=== PATIENT | female | born 1965 | race Caucasian/White ===

== ENCOUNTER → 2017-04-16 | Outpatient (CLI) | payer MEDICAID ==
[2017-04-16 15:55] LABS: Estradiol 26.6 pg/mL
== END | disposition home or self-care (01) ==
LOC: RADXRMAIN 08:00
PROVIDERS: ATTEND Obstetrics & Gynecology
DX: N92.6 Irregular menstruation, unspecified (principal); R51 Headache
CPT/HCPCS: 82670; 83001; 84439; 84443

== ENCOUNTER → 2017-04-22 | Outpatient (CLI) | payer MEDICAID ==
--- NOTE | 2017-04-22 14:32 | BD ---
EXAMINATION TYPE: MG DEXA axial skeleton. DATE OF EXAM: 04/22/2017 COMPARISON: NONE CLINICAL HISTORY: post menopausal Height: 5'3 1/2 Weight: 130 FRAX RISK QUESTIONS: Alcohol (3 or more units per day): no Family History (Parent hip fracture): no Glucocorticoids (More than 3mos): no (Ex: prednisone, prednisolone, methylprednisolone, dexamethasone, and hydrocortisone). History of Fracture in Adulthood: yes Secondary Osteoporosis: 1. Type 1 Diabetes: no 2. Hyperthyroidism: no 3. Menopause before 45: no 4. Malnutrition: no 5. Chronic liver disease: no Rheumatoid Arthritis: no Current Tobacco Use: no RISK FACTORS HISTORY OF: Spine Fracture: t spine When: 2004 History of Wrist Fracture: When: child Family History of Osteoporosis: post menopausal MEDICATIONS: Additional Medications: Additional History: EXAM MEASUREMENTS: Bone mineral densitometry was performed using the [employer] System. Bone mineral density as measured about the Lumbar spine is: ----- L1-L4(G/cm2): 0.933 T Score Values are as follows: ----- L2: -2.5 ----- L3: -2.0 ----- L4: -1.6 ----- L1-L4: -2.1 Bone mineral density about the R hip (g/cm2): 0.897 Bone mineral density about the L hip (g/cm2): 0.906 T Score values are as follows: -----R Neck: -1.0 -----L Neck: -1.0 -----R Total: -0.3 -----L Total: -0.4 IMPRESSION: Osteopenia (T Score between -2.5 and -1) as noted by T score values:L1-L4 There is slightly increased risk of fracture and the patient may be considered for treatment. Re-Screen 2-5 years. NOTE: T-SCORE=SD OF THE YOUNG ADULT MEAN.
== END | disposition home or self-care (01) ==
LOC: RADBDWWP 07:25
PROVIDERS: ATTEND Obstetrics & Gynecology
DX: M85.80 Other specified disorders of bone density and structure, unspecified site (principal); Z78.0 Asymptomatic menopausal state
CPT/HCPCS: 77080

== ENCOUNTER → 2018-01-19 | Outpatient (CLI) | payer MEDICAID ==
--- NOTE | 2018-01-20 08:17 | MR ---
EXAMINATION TYPE: MR ankle RT wo con DATE OF EXAM: 01/20/2018 COMPARISON: None HISTORY: Stress fracture, pain right ankle x 1 week Standard multiplanar, multisequence MRI departmental protocol Multiplanar, multisequence images of the right ankle were acquired. FINDINGS: There is diffuse edema throughout the distal margin of the fibula. There is extensive abnormal signal in the surrounding soft tissues findings suggestive of a periosteal reaction. Questionable subtle li near area of signal involving the distal fibula just proximal to the ankle joint may represent a massimo ical hairline defect. Findings are compatible with a stress fracture. Follow to resolution to exclude other etiologies. Visualized tibia demonstrates a normal signal pattern. The Achilles tendon has a normal appearance. V isualized tendinous and muscular structures appear to be intact. No diagnostic evidence of ligamentou s injury. IMPRESSION: Stress fracture distal fibula
== END | disposition home or self-care (01) ==
LOC: RADMRIMAIN 15:01
PROVIDERS: ATTEND Radiology Diagnostic Radiology
DX: M84.371A Stress fracture, right ankle, initial encounter for fracture (principal)

== ENCOUNTER → 2018-01-29 | Outpatient (CLI) | payer MEDICAID ==
[2018-01-29 06:52] LABS: Basophils % (A) 1 %; Eosinophils # (A) 0.2 k/uL (0-0.7); Eosinophils % (A) 5 %; HCT 42.8 % (34.0-46.0); HGB 13.8 gm/dL (11.4-16.0); Lymphocytes # (A) 1.1 k/uL (1.0-4.8); Lymphocytes % (A) 25 %; MCH 32.1 pg (25.0-35.0); MCHC 32.2 g/dL (31.0-37.0); MCV 99.7 fL (80.0-100.0); Mean Platelet Volume 6.2; Monocytes # (A) 0.3 k/uL (0-1.0); Monocytes % (A) 7 %; Neutrophils # (A) 2.7 k/uL (1.3-7.7); Neutrophils % (A) 61 %; Platelet Count 263 k/uL (150-450); RBC 4.29 m/uL (3.80-5.40); RDW 12.4 % (11.5-15.5); WBC 4.4 k/uL (3.8-10.6)
[2018-01-29 07:01] LABS: Appearance,Urine Clear (Clear); Bilirubin,Urine Negative (Negative); Blood,Urine Negative (Negative); Color,Urine Yellow; Glucose,Urine (UA) Negative (Negative); Ketones,Urine Negative (Negative); Leukocyte Esterase,Urine Trace (Negative); Mucus,Urine Rare /hpf; Nitrite,Urine Negative (Negative); PH, Urine 5.5 (5.0-8.0); Protein,Urine Negative (Negative); RBC,Urine <1 /hpf (0-5); Specific Gravity,Urine 1.015 (1.001-1.035); Squamous Epithelial Cell,Urine 2 /hpf (0-4); Urobilinogen,Urine <2.0 mg/dL (<2.0); WBC,Urine <1 /hpf (0-5)
[2018-01-29 07:09] LABS: ALT 30 U/L (9-52); AST 26 U/L (14-36); Albumin 4.2 g/dL (3.5-5.0); Alkaline Phosphatase 71 U/L (38-126); Amylase 69 U/L (30-110); Anion Gap 5 mmol/L; Blood Urea Nitrogen 18 mg/dL (7-17); Calcium 9.4 mg/dL (8.4-10.2); Carbon Dioxide 27 mmol/L (22-30); Chloride 106 mmol/L (98-107); Cholesterol 187 mg/dL (<200); Creatine Kinase 39 U/L (30-135); Glucose 86 mg/dL (74-99); HDL Cholesterol 93 mg/dL (40-60); LDL Cholesterol,Calculated 70 mg/dL (0-99); Lipase 95 U/L (23-300); Potassium 4.4 mmol/L (3.5-5.1); Sodium 138 mmol/L (137-145); Total Bilirubin 0.7 mg/dL (0.2-1.3); Total Protein 7.2 g/dL (6.3-8.2); Triglycerides 118 mg/dL (<150)
[2018-01-29 09:56] LABS: Erythrocyte Sedimentation Rate 8 mm/hr (0-20)
[2018-01-29 13:10] LABS: Gliadin AB IgA, Unit 1.1 U/mL
== END | disposition home or self-care (01) ==
LOC: LABWHC1 06:30
PROVIDERS: ATTEND Family Medicine
DX: Z00.00 Encounter for general adult medical examination without abnormal findings (principal); K90.41 Non-celiac gluten sensitivity; Z13.220 Encounter for screening for lipoid disorders
CPT/HCPCS: 36415; 80053; 80061; 81001; 82150; 82306; 82550; 82607; 83516; 83690; 84443; 85025; 85652

== ENCOUNTER → 2018-04-15 | Outpatient (CLI) | payer MEDICAID ==
--- NOTE | 2018-04-15 11:23 | MR ---
EXAMINATION TYPE: MR brain wo/w con DATE OF EXAM: 04/15/2018 COMPARISON: 05/22/2010 HISTORY: F/U meningioma surgery 2004 TECHNIQUE: Multiplanar, multisequence images of the brain and brainstem is performed without and with IV contras t, utilizing 5.5 mL intravenous Gadavist . FINDINGS: Diffusion weighted images demonstrate no evidence of a recent infarct or other diffusion ab normality. There is no extra-axial fluid collection or significant white matter signal abnormality. The ventricular system and cisternal spaces are normal in size and appearance. The brain volume is age appropriate. Midline structures demonstrate normal morphology. Cerebellar tonsils are stable in position and sligh tly low-lying at the level the foramen magnum. Her graft there is postsurgical change involving the l eft cerebral convexity posteriorly. There is encephalomalacia within the left posterior parietal lobe which is stable from the prior exam. Minimal residual dural enhancement from the previous surgery no rossy. No evidence of enhancing mass. Incidental note is made of a stable appearing left parietal venous angioma. Minimal changes of chronic sinusitis noted. Slight nasal septal deviation. IMPRESSION: 1. Postsurgical changes with stable encephalomalacia involving the posterior left parietal lobe and n o evidence of recurrent mass. 2. Stable incidental venous angioma left parietal lobe. 3. Stable low-lying cerebellar tonsils at the level the foramen magnum.
== END ==
LOC: RADMRIMAIN 09:27
PROVIDERS: ATTEND Family Medicine
DX: G93.89 Other specified disorders of brain (principal); Q28.3 Other malformations of cerebral vessels
CPT/HCPCS: 70553; A9585

== ENCOUNTER → 2018-05-17 | Outpatient (CLI) | payer MEDICAID ==
--- NOTE | 2018-05-18 07:54 | MM ---
Reason for exam: screening (asymptomatic). Last mammogram was performed 1 year and 2 months ago. History: Patient has history of high-risk lesion on a previous biopsy at age 48. Family history of breast cancer in mother at age 62. Benign u/S left breast localization of the left breast, September 06, 2013. High risk US LT VAD breast biopsy of the left breast, August 24, 2013. Cancelled Right US Needle Biopsy of the right breast, February 24, 2007. Took hormonal contraceptives for 10 years. Physical Findings: A clinical breast exam by your physician is recommended on an annual basis and results should be correlated with mammographic findings. MG 3D Screening Mammo W/Cad Bilateral CC and MLO view(s) were taken. Prior study comparison: March 30, 2017, bilateral MG 3d screening mammo w/cad. October 09, 2015, bilateral MG 3d screening mammo w/cad. The breast tissue is heterogeneously dense. This may lower the sensitivity of mammography. Nodular areas of focal asymmetry appear more defined superiorly in the right breast. ASSESSMENT: Incomplete: need additional imaging evaluation, BI-RAD 0 RECOMMENDATION: Special view mammogram of the right breast. If lesion persists on supplemental views, image directed ultrasound is recommended. [facility] will attempt to contact patient to return for supplemental views and ultrasound if indicated.
== END | disposition home or self-care (01) ==
LOC: RADMAMWWP 07:21
PROVIDERS: ATTEND Family Medicine
DX: Z12.31 Encounter for screening mammogram for malignant neoplasm of breast (principal); Z80.3 Family history of malignant neoplasm of breast
CPT/HCPCS: 77063; 77067

== ENCOUNTER → 2018-06-09 | Outpatient (CLI) | payer MEDICAID ==
--- NOTE | 2018-06-12 14:55 | MM ---
Reason for exam: additional evaluation requested from abnormal screening. Last mammogram was performed 1 month ago. History: Patient is postmenopausal and has history of high-risk lesion on a previous biopsy at age 48. Family history of breast cancer in mother at age 62. Benign u/S left breast localization of the left breast, September 06, 2013. High risk US LT VAD breast biopsy of the left breast, August 24, 2013. Cancelled Right US Needle Biopsy of the right breast, February 24, 2007. Took hormonal contraceptives for 10 years. Indicated problem(s): other indicated problem in the left breast. Physical Findings: Patient refused breast exam. MG 3D Work Up W/Cad RT Spot compression CC, spot compression MLO, and LM view(s) were taken of the right breast. Prior study comparison: May 17, 2018, bilateral MG 3d screening mammo w/cad. March 30, 2017, bilateral MG 3d screening mammo w/cad. The breast tissue is heterogeneously dense. This may lower the sensitivity of mammography. Although the asymmetries improve on additional views a precautionary right upper outer quadrant ultrasound will be performed. ASSESSMENT: Incomplete: need additional imaging evaluation, BI-RAD 0 RECOMMENDATION: Ultrasound of the right breast.
--- NOTE | 2018-06-12 14:59 | USB ---
History: Patient is postmenopausal and has history of high-risk lesion on a previous biopsy at age 48. Family history of breast cancer in mother at age 62. Benign u/S left breast localization of the left breast, September 06, 2013. High risk US LT VAD breast biopsy of the left breast, August 24, 2013. Cancelled Right US Needle Biopsy of the right breast, February 24, 2007. Took hormonal contraceptives for 10 years. US Breast Workup Limited RT Right limited breast ultrasound including focal area of concern, retroareolar and axilla demonstrates at 9 o'clock and 10 o'clock prominent ducts, ductal ectasia, a .5 x .4 x 03 cm oval cystic lesion at 10 o'clock is also seen. These results were verbally communicated with the patient and result sheet given to the patient on 06/09/18. ASSESSMENT: Benign, BI-RAD 2 RECOMMENDATION: Routine screening mammogram of both breasts in 1 year.
== END | disposition home or self-care (01) ==
LOC: RADMAMWWP 07:06
PROVIDERS: ATTEND Family Medicine
DX: R92.8 Other abnormal and inconclusive findings on diagnostic imaging of breast (principal)
CPT/HCPCS: 77061; 77065

== ENCOUNTER → 2019-08-02 | Outpatient (CLI) | payer MEDICAID ==
--- NOTE | 2019-08-03 08:04 | MM ---
Reason for exam: additional evaluation requested from prior study. Last mammogram was performed 1 year and 2 months ago. History: Patient is postmenopausal and has history of high-risk lesion on a previous biopsy at age 48. Family history of breast cancer in mother at age 62. Benign u/S left breast localization of the left breast, September 06, 2013. High risk US LT VAD breast biopsy of the left breast, August 24, 2013. Cancelled Right US Needle Biopsy of the right breast, February 24, 2007. Took hormonal contraceptives for 10 years. Physical Findings: Nurse did not find any significant physical abnormalities on exam. MG 3D Diag Mammo W/Cad [facility] Bilateral CC, MLO, and XCCL view(s) were taken. Prior study comparison: June 09, 2018, right breast MG 3d work up w/cad RT. May 17, 2018, bilateral MG 3d screening mammo w/cad. The breast tissue is extremely dense which could obscure a lesion on mammography. There is no discrete abnormality. These results were verbally communicated with the patient and result sheet given to the patient on 08/02/19. ASSESSMENT: Benign, BI-RAD 2 RECOMMENDATION: Routine screening mammogram of both breasts in 1 year.
== END | disposition home or self-care (01) ==
LOC: RADMAMWWP 15:19
PROVIDERS: ATTEND Obstetrics & Gynecology
DX: R92.8 Other abnormal and inconclusive findings on diagnostic imaging of breast (principal)
CPT/HCPCS: 77062; 77066

== ENCOUNTER → 2020-11-09 | Outpatient (CLI) | payer MEDICAID ==
--- NOTE | 2020-11-14 13:44 | MM ---
Reason for exam: screening (asymptomatic). Last mammogram was performed 1 year and 3 months ago. History: Patient is postmenopausal and has history of high-risk lesion on a previous biopsy at age 48. Family history of breast cancer in mother at age 62. Benign u/S left breast localization of the left breast, September 06, 2013. High risk US LT VAD breast biopsy of the left breast, August 24, 2013. Cancelled Right US Needle Biopsy of the right breast, February 24, 2007. Took hormonal contraceptives for 10 years. Physical Findings: A clinical breast exam by your physician is recommended on an annual basis and results should be correlated with mammographic findings. MG 3D Screening Mammo W/Cad Bilateral CC and MLO view(s) were taken. Prior study comparison: August 02, 2019, bilateral MG 3d diag mammo w/cad [facility]. June 09, 2018, right breast MG 3d work up w/cad RT. The breast tissue is heterogeneously dense. This may lower the sensitivity of mammography. There is no discrete abnormality. ASSESSMENT: Benign, BI-RAD 2 RECOMMENDATION: Routine screening mammogram of both breasts in 1 year.
== END | disposition home or self-care (01) ==
LOC: RADMAMWWP 11:59 → MERGE 12:00
PROVIDERS: ATTEND Obstetrics & Gynecology
DX: Z12.31 Encounter for screening mammogram for malignant neoplasm of breast (principal); Z78.0 Asymptomatic menopausal state; Z80.3 Family history of malignant neoplasm of breast
CPT/HCPCS: 77063; 77067

== ENCOUNTER → 2020-11-19 | Outpatient (CLI) | payer MEDICAID ==
[2020-11-19 11:45] LABS: Basophils # (A) 0.02 X 10*3/uL (0.00-0.10); Basophils % (A) 0.5 %; Eosinophils # (A) 0.06 X 10*3/uL (0.04-0.35); Eosinophils % (A) 1.6 %; HCT 41.5 % (37.2-46.3); HGB 13.8 g/dL (12.0-15.0); Lymphocytes # (A) 1.38 X 10*3/uL (0.90-5.00); Lymphocytes % (A) 35.8 %; MCH 32.5 pg (27.0-32.0); MCHC 33.3 g/dL (32.0-37.0); MCV 97.6 fL (80.0-97.0); Mean Platelet Volume 9.3 fL (9.5-12.2); Monocytes # (A) 0.29 X 10*3/uL (0.20-1.00); Monocytes % (A) 7.5 %; Neutrophils # (A) 2.11 X 10*3/uL (1.80-7.70); Neutrophils % (A) 54.6 %; Platelet Count 272 X 10*3/uL (140-440); RBC 4.25 X 10*6/uL (4.10-5.20); RDW 11.9 % (11.5-14.5); WBC 3.86 X 10*3/uL (4.50-10.00)
[2020-11-19 12:35] LABS: African American GFR (CKD) 119.8 (60.0-200.0); Albumin 4.5 g/dL (3.80-4.90); Albumin/Globulin Ratio 1.67 (1.60-3.17); Anion Gap 8.9 mmol/L (4.00-12.00); BUN/Creat Ratio 28.33 Ratio (12.00-20.00); Calcium 9.1 mg/dL (8.7-10.3); Carbon Dioxide 26.1 mmol/L (21.6-31.8); Chol/HDL Ratio 2.36; Globulin 2.7 g/dL (1.6-3.3); LDL Cholesterol,Calculated 106.2 mg/dL (0.0-131.0); Non-African American GFR(CKD) 103.3 (60.0-200.0); Potassium 4.1 mmol/L (3.5-5.5); Total Bilirubin 0.8 mg/dL (0.2-1.2); Total Protein 7.2 g/dL (6.2-8.2); VLDL Calculation 18.8 mg/dL (5.00-40.00)
== END | disposition home or self-care (01) ==
LOC: LABWHC1 07:24
PROVIDERS: ATTEND Family Medicine
DX: Z00.00 Encounter for general adult medical examination without abnormal findings (principal)
CPT/HCPCS: 36415; 80053; 80061; 84443; 85025

== ENCOUNTER → 2020-12-12 | Outpatient (CLI) | payer MEDICAID ==
--- NOTE | 2020-12-13 07:35 | BD ---
EXAMINATION TYPE: Axial Bone Density DATE OF EXAM: 12/12/2020 COMPARISON: 04/22/2017 CLINICAL HISTORY: post menopausal Height: 63.7 IN Weight: 131 LBS FRAX RISK QUESTIONS: History of Fracture in Adulthood: LT ANKLE FX (FIBULA) RISK FACTORS HISTORY OF: History of Wrist Fracture: LT WRIST AGE 16 Family History of Osteoporosis: YES MOTHER Active: YES Postmenopausal woman: AGE 53 Take estrogen and/or progesterone medications: NOT NOW How long: TOOK CONTROL FOR 10 YEARS MEDICATIONS: Additional Medications: CALCIUM, VIT D, EXAM MEASUREMENTS: Bone mineral densitometry was performed using the [employer] System. Bone mineral density as measured about the Lumbar spine is: ----- L1-L4(G/cm2): 0.883 T Score Values are as follows: ----- L2: -2.9 ----- L3: -2.5 ----- L4: -2.2 ----- L1-L4: -2.5 Bone mineral density has: Decreased -6.3% since study of: 04/22/2017 Bone mineral density about the R hip (g/cm2): 0.833 Bone mineral density about the L hip (g/cm2): 0.836 T Score values are as follows: -----R Neck: -1.5 -----L Neck: -1.5 -----R Total: -0.5 -----L Total: -0.8 Bone mineral density has: Decreased -4.1% since study of: 04/22/2017 IMPRESSION: osteoporosis. NOTE: T-SCORE=SD OF THE YOUNG ADULT MEAN.
== END | disposition home or self-care (01) ==
LOC: RADBDWWP 12:31 → MERGE 12:40
PROVIDERS: ATTEND Obstetrics & Gynecology
DX: M81.0 Age-related osteoporosis without current pathological fracture (principal)
CPT/HCPCS: 77080

== ENCOUNTER → 2021-01-16 | Outpatient (CLI) | payer MEDICAID ==
[2021-01-16 15:44] LABS: Basophils # (A) 0.03 X 10*3/uL (0.00-0.10); Basophils % (A) 0.8 %; Eosinophils # (A) 0.08 X 10*3/uL (0.04-0.35); Eosinophils % (A) 2.1 %; HCT 41.1 % (37.2-46.3); HGB 13.3 g/dL (12.0-15.0); Lymphocytes # (A) 1.56 X 10*3/uL (0.90-5.00); Lymphocytes % (A) 40.5 %; MCH 31.9 pg (27.0-32.0); MCHC 32.4 g/dL (32.0-37.0); MCV 98.6 fL (80.0-97.0); Mean Platelet Volume 9.7 fL (9.5-12.2); Monocytes # (A) 0.36 X 10*3/uL (0.20-1.00); Monocytes % (A) 9.4 %; Neutrophils # (A) 1.81 X 10*3/uL (1.80-7.70); Neutrophils % (A) 46.9 %; Platelet Count 264 X 10*3/uL (140-440); RBC 4.17 X 10*6/uL (4.10-5.20); RDW 11.9 % (11.5-14.5); WBC 3.85 X 10*3/uL (4.50-10.00)
== END | disposition home or self-care (01) ==
LOC: LABWHC1 07:42
PROVIDERS: ATTEND Family Medicine
DX: D70.9 Neutropenia, unspecified (principal)
CPT/HCPCS: 36415; 85025

== ENCOUNTER → 2021-06-03 | Outpatient (CLI) | payer MEDICAID ==
[2021-06-03 09:11] LABS: Appearance,Urine Clear (Clear); Bilirubin,Urine Negative (Negative); Blood,Urine Negative (Negative); Color,Urine Yellow; Glucose,Urine (UA) Negative (Negative); Ketones,Urine Negative (Negative); Leukocyte Esterase,Urine Moderate (Negative); Mucus,Urine Rare /hpf; Nitrite,Urine Negative (Negative); Protein,Urine Negative (Negative); RBC,Urine 1 /hpf (0-5); Specific Gravity,Urine 1.016 (1.001-1.035); Squamous Epithelial Cell,Urine <1 /hpf (0-4); Urobilinogen,Urine <2.0 mg/dL (<2.0); WBC,Urine 2 /hpf (0-5)
[2021-06-03 09:17] LABS: INR 0.9 (<1.2); Partial Thromboplastin Time 25.5 sec (22.0-30.0); Prothrombin Time 9.6 sec (9.0-12.0)
[2021-06-03 10:56] LABS: Basophils # (A) 0.02 X 10*3/uL (0.00-0.10); Basophils % (A) 0.4 %; Eosinophils # (A) 0.05 X 10*3/uL (0.04-0.35); Eosinophils % (A) 1.1 %; HGB 13.4 g/dL (12.0-15.0); Lymphocytes # (A) 1.47 X 10*3/uL (0.90-5.00); Lymphocytes % (A) 31.9 %; MCH 31.1 pg (27.0-32.0); MCHC 31.9 g/dL (32.0-37.0); MCV 97.4 fL (80.0-97.0); Mean Platelet Volume 9.2 fL (9.5-12.2); Monocytes # (A) 0.39 X 10*3/uL (0.20-1.00); Monocytes % (A) 8.5 %; Neutrophils # (A) 2.67 X 10*3/uL (1.80-7.70); Neutrophils % (A) 57.9 %; Platelet Count 282 X 10*3/uL (140-440); RBC 4.31 X 10*6/uL (4.10-5.20); RDW 11.6 % (11.5-14.5); WBC 4.61 X 10*3/uL (4.50-10.00)
[2021-06-03 11:16] LABS: African American GFR (CKD) 126.3 (60.0-200.0); Albumin 4.4 g/dL (3.8-4.9); Albumin/Globulin Ratio 1.76 (1.60-3.17); Calcium 9.2 mg/dL (8.7-10.3); Globulin 2.5 g/dL (1.6-3.3); Potassium 4.4 mmol/L (3.5-5.5); Total Bilirubin 0.3 mg/dL (0.30-1.20); Total Protein 6.9 g/dL (6.2-8.2)
== END | disposition home or self-care (01) ==
LOC: LABWHC1 07:31
PROVIDERS: ATTEND Nurse Practitioner Adult Health
DX: Z01.818 Encounter for other preprocedural examination (principal); M21.611 Bunion of right foot; M21.621 Bunionette of right foot
CPT/HCPCS: 36415; 80053; 81001; 85025; 85610; 85730; 86850; 86900; 86901; 87086; 93005

== ENCOUNTER → 2022-01-15 | Outpatient (CLI) | payer MEDICAID ==
--- NOTE | 2022-01-16 19:08 | MM ---
Reason for Exam: Screening (asymptomatic). Last mammogram was performed 1 year(s) and 2 month(s) ago. Patient History: Menarche at age 13. First Full-Term at age 20. Postmenopausal. Patient used Hormonal Contraceptives for 10 years. 09/06/2013, Benign Excisional Biopsy on the left side. 08/24/2013, High risk Core Biopsy on the left side. 02/24/2007, Cancelled Right US Needle Biopsy on the right side. Mother had breast cancer, age 62. Risk Values: Kylah 5 year model risk: 3.4%. NCI Lifetime model risk: 20.8%. Prior Study Comparison: 06/09/2018 Right Diagnostic Mammogram, [facility]. 08/02/2019 Bilateral Diagnostic Mammogram, [facility]. 11/09/2020 Bilateral Screening Mammogram, [facility]. Tissue Density: The breast tissue is heterogeneously dense. This may lower the sensitivity of mammography. Findings: Analyzed By CAD. Bilateral areas of asymmetric density remain unchanged. Chronic nodularity lateral right breast and left axillary tail. No significant change from prior exam. Overall Assessment: Benign, BI-RAD 2 Management: Screening Mammogram of both breasts in 1 year. 1. Given patient's lifetime risk for developing breast cancer of 21%, recommend alternating screening breast MRI and mammogram at 6 month intervals. 2. Patient should continue monthly self breast exams. A clinical breast exam by your physician is recommended on an annual basis. 3. This exam should not preclude additional follow-up of suspicious palpable abnormalities. Electronically signed and approved by: Shamar Prajapati M.D. Radiologist
== END | disposition home or self-care (01) ==
LOC: RADMAMWWP 14:04
PROVIDERS: ATTEND Family Medicine
DX: Z12.31 Encounter for screening mammogram for malignant neoplasm of breast (principal); Z78.0 Asymptomatic menopausal state; Z80.3 Family history of malignant neoplasm of breast
CPT/HCPCS: 77063; 77067